=== PATIENT | male | born 1975 | race Caucasian/White ===

== ENCOUNTER → 2016-04-21 | Outpatient (CLI) | payer BC ==
[~2016-04-21] MED LIST: METH5TAB5 PO; METH5TAB63 PO; PROP40TA5 PO; VENL50TA2 PO
[2016-04-21 11:52] LABS: ALKALINE PHOSPHATASE 102 U/L (45-117); ALT/SGPT 58 U/L (12-78); AST/SGOT 24 U/L (15-37); THYROID STIMULATING HORMONE < 0.005 uIu/ml (0.300-4.500)
== END | disposition home or self-care (01) ==
LOC: C.LAB1850 10:18
PROVIDERS: ATTEND Internal Medicine Endocrinology, Diabetes & Metabolism
DX: E05.00 Thyrotoxicosis with diffuse goiter without thyrotoxic crisis or storm (principal)

== ENCOUNTER 2016-07-19 07:22 | Inpatient (IN) | payer BC ==
[2016-06-16 08:10] VITALS: BMI 35.0
--- NOTE | 2016-06-16 08:31 | PAT Medication Instructions ---
Service Date Jun 16, 2016. Current Home Medication List Methimazole (Tapazole), 10 MG PO QAM Methimazole (Tapazole), 5 MG PO HS Propranolol Hcl (Propranolol Hcl), 1 TAB PO BID Venlafaxine Hcl (Effexor), 50 MG PO QAM Medication Instructions For Your Scheduled Surgery - Take the following medications the morning of surgery with a sip of water OTHERWISE NOTHING TO EAT OR DRINK AFTER MIDNIGHT: Methimazole (Tapazole), 10 MG PO QAM Venlafaxine Hcl (Effexor), 50 MG PO QAM Propranolol Hcl (Propranolol Hcl), 1 TAB PO BID - Take the following medications as scheduled the night before surgery: Propranolol Hcl (Propranolol Hcl), 1 TAB PO BID Methimazole (Tapazole), 5 MG PO HS If you have any questions please call us at [phone] or [phone] or [phone]
[2016-06-16 09:28] LABS: BASO % 0.2 %; BASO ABS # 0.01 K/uL (0-0.2); COMPLETE YES; EOS % 1.5 %; HEMATOCRIT 45.4 % (42-52); IG% 0.3 %; LYMPH % 35.6 %; LYMPH ABS # 2.13 K/uL (1.2-3.4); MEAN CELL VOLUME 83.9 fL (80-100); MEAN CORPUSCULAR HGB CONC 34.6 g/dl (32-36); MEAN PLATELET VOLUME 9.1 fL (7.4-10.4); NEUT % 54.4 %; PLATELET COUNT 265 K/uL (130-400); RED BLOOD COUNT 5.41 M/uL (4.7-6.1); WHITE BLOOD COUNT 5.99 K/uL (4.8-10.8)
[2016-06-16 09:45] LABS: BUN/CREATININE RATIO 15.2 (10-20); CALCIUM 9.4 mg/dl (8.5-10.1); POTASSIUM 4.9 mmol/L (3.5-5.1)
[~2016-07-19] VITALS: Ht 167.6 cm; Wt 98.1 kg
[2016-07-19] VITALS (7 sets, daily range): BP systolic 122–141; BP diastolic 75–86; PULSE 71–89; TEMP 36.7–37.4; O2SAT 96; Ht 167.6 cm; Wt 98.1 kg
[~2016-07-19 07:22] MED LIST changes: +ACETAMINOPHEN 1000 MG/100 ML IV IV ONE; +CEFAZOLIN 2000 MG/60 ML D5W IV SCH; +LACTATED RINGER'S 1000ML 1,000 ML IV SCH
[2016-07-19] MEDS ORDERED: MIDAZOLAM HCL 1 MG/ML 2ML VIAL ONE (08:34)
[2016-07-19] MEDS ORDERED: FENTANYL CITRATE INJ 50 MCG/1 ML 2 ML VIAL ONE ×2 (08:34→12:19)
[2016-07-19] MEDS ORDERED: ROCURONIUM BROMIDE 10 MG/ML 5 ML VIAL ONE (08:34)
[2016-07-19] MEDS ORDERED: SUCCINYLCHOLINE CHLORIDE 20 MG/ML 10 ML VIAL IV ONE (08:34)
[2016-07-19] MEDS ORDERED: LIDOCAINE HCL 2% 2 ML VIAL (20MG/ML) ONE (08:34)
[2016-07-19] MEDS ORDERED: PROPOFOL IV EMULSION 10 MG/ML 20 ML VIAL IV ONE (08:34)
[2016-07-19] MEDS ORDERED: DEXAMETHASONE SOD INJ 4 MG/ML VIAL ONE (08:34)
[2016-07-19] MEDS ORDERED: ONDANSETRON INJ 2 MG/ML 2 ML VIAL ONE ×2 (08:34→12:20)
--- NOTE | 2016-07-19 10:11 | History & Physical Bridge Note ---
H&P Re-Evaluation Bridge Note: I have examined the patient, reviewed the History & Physical and in the interval since the performance of the History & Physical I have noted the following changes of clinical significance: No changes noted
--- NOTE | 2016-07-19 10:46 | History and Physical ---
History & Physical Date Jul 19, 2016. Chief Complaint GRAVES DISEASE History of Present Illness The patient is a 40 year old male with complaints of GRAVES DISEASE WITH SYMPTOMS DESPITE METHIMAZOLE AND PROPRANOLOL. Past Medical/Surgical History PMH: GRAVES DISEASE, DYSLIPIDEMIA, KIDNEY SONES PSH: S/P BACK AND FOOT SURGERIES Additional History Hepatic Disease: No Endocrine Disorder: No Kidney Disease: No Hypertension: No Heart Disease: No Bleeding Tendencies: No Infectious Diseases: No Allergies Coded Allergies: Ciprofloxacin (Verified Allergy, Mild, HIVES, 07/19/16) Erythromycin (Verified Allergy, Unknown, CHILD, 07/19/16) Home Medications Scheduled Methimazole (Tapazole), 10 MG PO QAM Methimazole (Tapazole), 5 MG PO HS Propranolol Hcl (Propranolol Hcl), 1 TAB PO BID Venlafaxine Hcl (Effexor), 50 MG PO QAM Physical Examination Skin: warm/dry, no rash Eyes: normal inspection, EOMI, sclerae normal ENT: normal ENT inspection, pharynx normal Head: normocephalic, atraumatic Neck: + pertinent finding (MILDLY ENLARGED THYROID GLAND R>L WHICH IS SOFT ON PALPATION) Respiratory/Chest: lungs clear, normal breath sounds, no respiratory distress Cardiovascular: regular rate, rhythm, no edema, no murmur Neurologic/Psych: no motor/sensory deficits, alert, normal reflexes, oriented x 3 Diagnosis GRAVES DISEASE Plan of Treatment TOTAL THYROIDECTOMY - CHECK TSH AND FREE T3 STAT SINCE THIS HASN'T BEEN DONE SINCE 04/2016
[2016-07-19] MEDS ORDERED: LIDOCAINE/EPINEPHRINE 1% 20 ML VIAL ONE (10:49)
[2016-07-19] MEDS ORDERED: THROMBIN 5000 UNITS KIT ONE (10:49)
[2016-07-19] MEDS ORDERED: BACITRACIN OINT 15 GM TUBE ONE (10:49)
--- NOTE | 2016-07-19 13:14 | [facility] Operative Report ---
Operative Report Operative Date Jul 19, 2016. Pre-Operative Diagnosis Graves Disease Post-Operative Diagnosis SAME Procedure(s) Performed TOTAL THYROIDECTOMY Surgeon Dr. Michael Toth Lumber Sorter Surgeon(s) Avelina August PA-C Estimated Blood Loss 100ML Findings MILDLY ENLARGED THYROID GLAND Specimens A: Right Thyroid Lobe; double stitch= superior pole; single stitch= Isthmus B: Left Thyroid Lobe; double stitch= superior pole; single stitch= Isthmus I attest to the content of the Intraoperative Record and any orders documented therein. Any exceptions are noted below.
[2016-07-19] MEDS ORDERED: ONDANSETRON INJ 2 MG/ML 2 ML VIAL IV PRN ×2 (13:15→13:45)
[2016-07-19] MEDS ORDERED: HYDROCODONE/ACETAMOPHEN 5/325MG TAB PO PRN (13:15)
--- NOTE | 2016-07-19 13:20 | Discharge Instructions ---
Discharge Instructions Date of Service Jul 19, 2016. Admission Reason for Admission: Graves Disease, Thyroid Goiter Discharge Discharge Diagnosis / Problem: SAME Discharge Goals Goal(s): Therapeutic intervention Activity Recommendations Activity Limitations: as noted below LIGHT ACTIVITY FOR 2WEEKS; NO DRIVING WHILE ON [place] . Current Hospital Diet Patient's current hospital diet: Discharge Diet Recommended Diet: Regular Diet Procedures Procedures Performed: Total Thyroidectomy Pending Studies Studies pending at discharge: no Medical Emergencies . Who to Call and When: Medical Emergencies: If at any time you feel your situation is an emergency, please call 911 immediately. . Non-Emergent Contact Non-Emergency issues call your: Surgeon . . "Provider Documentation" section prepared by Michael Toth. . VTE Core Measure Inpt VTE Proph given/why not?: SCD's
[2016-07-19] MEDS ORDERED: SURGICEL ABSORB HEMOSTAT 2IN X 14IN TOP ONE (13:21)
[2016-07-19] MEDS ORDERED: PROMETHAZINE HCL INJ 12.5 MG in SODIUM CHLORIDE 0.9% 50ML 50 ML IV PRN (13:45)
[2016-07-19] MEDS ORDERED: NALOXONE HCL 0.4 MG/1 ML VIAL/CARP IV PRN (13:45)
[2016-07-19] MEDS ORDERED: FLUMAZENIL 0.1 MG/1 ML 10 ML VIAL IV PRN (13:45)
[2016-07-19] MEDS ORDERED: LABETALOL HCL IV 5 MG/ML 20ML IV PRN (13:45)
[2016-07-19] MEDS ORDERED: ATROPINE SULFATE 0.1 MG/ML 5ML SYR IV PRN (13:45)
[2016-07-19] MEDS ORDERED: EpHEDrine SULFATE INJ 50 MG/ML AMP IV PRN (13:45)
[2016-07-19] MEDS ORDERED: HYDROmorphone INJ 1 MG/ML SYR IV PRN (13:45)
[2016-07-19] MEDS ORDERED: HYDROmorphone INJ 1 MG/ML SYR ONE (14:11)
--- NOTE | 2016-07-19 14:18 | OPERATIVE REPORT ---
DATE OF OPERATION: 07/19/2016 PREOPERATIVE DIAGNOSIS: Graves' disease. POSTOPERATIVE DIAGNOSIS: Graves' disease. PROCEDURE: Total thyroidectomy. SURGEON: Dr. Toth. FIXED INCOME MANAGER: Avelina August PA-C. ESTIMATED BLOOD LOSS: 100 mL. FINDINGS: Mildly enlarged thyroid gland. SPECIMENS: Right and left thyroid lobe sent separately for permanent pathologic assessment. DRAINS: None. COMPLICATIONS: None. INDICATIONS FOR THE PROCEDURE: The patient is a 40-year-old male with the above-mentioned history who has had symptoms despite being on methimazole and propranolol who desiring surgical treatment of his Graves' disease. He presents for the above-mentioned procedure on an inpatient elective basis. DETAILS OF PROCEDURE: After informed consent had been obtained from the patient, the patient was wheeled to the operating room and placed on the operating table in the supine position. Monitors were placed. After induction of general endotracheal anesthesia with a nerve integrity monitor endotracheal tube the patient's head and neck were gently extended and a marking pen was used to outline the planned 6 cm incision in a natural skin crease 2 fingerbreadths above the level of clavicles. A total of 3 mL of 1% lidocaine with 1:100,000 epinephrine was used to inject the skin and subcutaneous tissues overlying the planned incision site. The skin in the neck and chest were then prepped and draped in the usual sterile fashion. A #15 scalpel was then used to make the incision through the skin, subcutaneous tissue, and platysma. Subplatysmal flaps were raised superiorly to the level of the thyroid notch and inferiorly to the level of clavicles. The medial raphae of the strap muscles were divided using Bovie electrocautery. The strap muscles were retracted laterally and the right thyroid lobe was first addressed. The middle thyroid vein as well as superior and inferior thyroid vascular pedicles were divided adjacent to the thyroid capsule using a Harmonic scalpel. Dissection was carried lateral to medial with care to identify and preserve the right recurrent laryngeal nerve as well as superior and inferior parathyroid candidates. The thyroid gland was at the isthmus using a Harmonic scalpel and orienting sutures were placed on the right thyroid lobectomy. Specimens were sent off for permanent pathological assessment. The left side was then addressed in a similar fashion. Intraoperative findings were of a very mildly enlarged thyroid gland. The wound was then copiously irrigated and suctioned. Bipolar electrocautery was used to achieve adequate hemostasis. Hemostasis was confirmed with a Valsalva maneuver. Small pieces of Surgicel followed by topical spray thrombin were placed in the bilateral tracheoesophageal grooves for added hemostatic effect. The strap muscles was then reapproximated using a simple running interlocked 3-0 Vicryl suture. The platysma was then closed with several deep 4-0 Monocryl sutures. The skin was then closed with a simple running subcuticular 5-0 Monocryl suture. Incision was cleansed and dried. Dermabond was applied to the incision. This marked the end of the case. The patient tolerated the procedure well. There were no apparent complications. The patient was extubated and transferred to recovery room in stable condition. I attest to the content of the Intraoperative Record and any orders documented therein. Any exceptio ns are noted below.
--- NOTE | 2016-07-19 14:29 | Anesthesiology Progress Note ---
Anesthesia Post Op Note Date & Time Jul 19, 2016 at 14:28 Vital Signs Pain Intensity: 3 Vital Signs Past 12 Hours Date Time Temp Pulse Resp B/P Pulse Ox O2 Delivery O2 Flow Rate FiO2 07/19/16 14:21 133/78 07/19/16 14:17 91 16 07/19/16 14:17 93 16 95 07/19/16 14:16 144/79 07/19/16 14:13 138/91 07/19/16 14:12 108 12 07/19/16 14:12 108 12 95 07/19/16 14:07 89 14 96 07/19/16 14:07 90 14 07/19/16 14:06 99 16 129/93 96 07/19/16 14:06 96 16 07/19/16 14:01 96 17 139/90 94 07/19/16 14:01 96 17 07/19/16 13:56 86 17 95 07/19/16 13:56 87 17 07/19/16 13:55 141/88 07/19/16 13:52 130/93 07/19/16 13:51 101 16 07/19/16 13:51 36.2 88 13 130/93 93 Mask 15 07/19/16 13:51 102 16 92 07/19/16 08:25 36.8 71 18 140/83 96 Room Air Notes Mental Status: alert / awake / arousable, participated in evaluation Pt Amnestic to Procedure: Yes Nausea / Vomiting: adequately controlled Pain: adequately controlled Airway Patency, RR, SpO2: stable & adequate BP & HR: stable & adequate Hydration State: stable & adequate Anesthetic Complications: no major complications apparent
[2016-07-19] MEDS: LACTATED RINGER'S 1000ML 1,000 ML IV SCH (17:00)
[2016-07-19] MEDS ORDERED: PNEUMOCOCCAL POLYSACCHARIDES 25 MCG/0.5 ML VIAL/SYR IM. ONE (18:30)
[2016-07-19] MEDS ORDERED: PNEUMOCOCCAL ADMINISTRATION CHARGE ONE (18:30)
[2016-07-19 19:49] LABS: MAGNESIUM 2.1 mg/dl (1.8-2.4); PHOSPHORUS 3.1 mg/dl (2.5-4.9)
[2016-07-19] MEDS ORDERED: PROPRANOLOL HCL 20 MG TAB PO SCH (21:00)
[2016-07-20] MEDS: LACTATED RINGER'S 1000ML 1,000 ML IV SCH
[2016-07-20 00:16] VITALS: BP 126/71; PULSE 78; TEMP 36.4; O2SAT 94
[2016-07-20 01:35] LABS: CALCIUM 8.8 mg/dl (8.5-10.1); MAGNESIUM 2.2 mg/dl (1.8-2.4); PHOSPHORUS 3.1 mg/dl (2.5-4.9)
[2016-07-20 04:15] VITALS: BP 133/63; PULSE 89; TEMP 37; O2SAT 92
[2016-07-20] MEDS ORDERED: NURSING DECISION MEDICATION ORDER SCH (05:30)
[2016-07-20] MEDS ORDERED: LEVOTHYROXINE 150 MCG TAB PO SCH (06:00)
--- NOTE | 2016-07-20 07:09 | ENT PROGRESS NOTE ---
DATE: 07/20/2016 The patient is postoperative day #1 status post total thyroidectomy for Graves' disease. He has had no postoperative problems. His postoperative calciums have been within normal limits. He is tolerating normal diet and has a normal voice. The patient is afebrile and his vital signs are stable. His voice is normal. His incision is clean, dry and intact, without any evidence of hematoma. ASSESSMENT AND PLAN: Postoperative day #1 status post total thyroidectomy for Graves' disease. The patient has done well postoperatively. He will be discharged today on [place] and Synthroid. Follow up in the office next Sunday.
--- NOTE | 2016-07-20 07:13 | DISCHARGE SUMMARY ---
ADMISSION DIAGNOSIS: Graves disease. DISCHARGE DIAGNOSIS: Graves disease status post total thyroidectomy. HOSPITAL COURSE: The patient is a 40-year-old male with a history of Graves disease with symptoms uncontrolled by methimazole and propranolol who underwent total thyroidectomy on 07/19/2016. Postoperatively he had no problems. His calciums were within normal limits. He was discharged to home on postoperative day 1 with new medications of [place] 5 mg/325 mg 1-2 tabs p.o. q.4h p.r.n. as well as Synthroid 150 mcg every morning. He should continue his propranolol but stop his methimazole. I would like to see him back on Sunday for an incision check and pathology review. He should call our office if he develops any numbness or tingling around his lips, fingers, or toes and involuntary muscle spasms or cramps. He should keep his incision dry until his followup appointment.
[2016-07-20 07:25] VITALS: BP 127/79; PULSE 62; TEMP 36.5; O2SAT 96
[2016-07-20 07:30] LABS: CALCIUM 8.8 mg/dl (8.5-10.1); MAGNESIUM 2.2 mg/dl (1.8-2.4); PHOSPHORUS 3.7 mg/dl (2.5-4.9)
--- NOTE | 2016-07-20 08:11 | Anesthesiology Progress Note ---
Anesthesia Post Op Note Date & Time Jul 20, 2016 at 08:10 Vital Signs Pain Intensity: 2.0 Vital Signs Past 12 Hours Date Time Temp Pulse Resp B/P Pulse Ox O2 Delivery O2 Flow Rate FiO2 07/20/16 07:25 36.5 62 16 127/79 96 Room Air 07/20/16 04:15 37.0 89 18 133/63 92 Room Air 07/20/16 00:16 36.4 78 18 126/71 94 Room Air 07/20/16 00:15 Room Air 07/19/16 21:28 72 122/75 Notes Mental Status: alert / awake / arousable, participated in evaluation Pt Amnestic to Procedure: Yes Nausea / Vomiting: adequately controlled Pain: adequately controlled Airway Patency, RR, SpO2: stable & adequate BP & HR: stable & adequate Hydration State: stable & adequate Anesthetic Complications: no major complications apparent
[2016-07-20 08:53] VITALS: BP 127/79; PULSE 62; TEMP 36.5; O2SAT 96
[2016-07-20] MEDS ORDERED: VENLAFAXINE HCL 50 MG TAB PO SCH (09:00)
== END 2016-07-20 09:05 | disposition home or self-care (01) | DRG 627 ==
LOC: ENRESERVTM → ENRESERVDT → C.ACU 07:22 → C.MSW 08:30
PROC: 0GTH0ZZ Resection of Right Thyroid Gland Lobe, Open Approach (ICD-10-PCS; principal; 2016-07-19 09:45)
PROC: 0GTG0ZZ Resection of Left Thyroid Gland Lobe, Open Approach (ICD-10-PCS; principal; 2016-07-19 09:45)
DX: E05.00 Thyrotoxicosis with diffuse goiter without thyrotoxic crisis or storm (principal)

== ENCOUNTER → 2016-08-25 | Outpatient (CLI) | payer BC ==
[~2016-08-25] MED LIST changes: -ACETAMINOPHEN 1000 MG/100 ML IV IV ONE; -CEFAZOLIN 2000 MG/60 ML D5W IV SCH; -LACTATED RINGER'S 1000ML 1,000 ML IV SCH; -METH5TAB5 PO; -METH5TAB63 PO
[2016-08-25 10:23] LABS: BLOOD UREA NITROGEN 11 mg/dl (7-18); BUN/CREATININE RATIO 9.2 (10-20); CARBON DIOXIDE 30 mmol/L (21-32); CHLORIDE 108 mmol/L (98-107); GLUCOSE 91 mg/dl (70-99); POTASSIUM 4.4 mmol/L (3.5-5.1); SODIUM 141 mmol/L (136-145)
--- NOTE | 2016-09-01 05:55 | CODING QUERY MEDICAL NECESSITY ---
CQSUPPORTING DIAGNOSIS NEEDED A supporting diagnosis is required for the test/procedure performed on this patient in order for us to be reimbursed by the patient's insurance. Please provide a supporting diagnosis for the following test/procedure listed below next to the test name along with your signature. *If there is no additional diagnosis for this patient that would support the following test/procedure please document that below next to the test/procedure. Test(s)/Procedure(s) that require a supporting diagnosis: DOS 08/25/16 VITAMIN D TEST Provider Signature: Date: Thank you Daniela Salvador Health Information Management Once completed, please kindly fax back to [phone] For questions please call [phone]
== END | disposition home or self-care (01) ==
LOC: C.LAB1850 09:16
PROVIDERS: ATTEND Internal Medicine Endocrinology, Diabetes & Metabolism
DX: E05.00 Thyrotoxicosis with diffuse goiter without thyrotoxic crisis or storm (principal); E55.9 Vitamin D deficiency, unspecified

== ENCOUNTER → 2017-06-18 | Outpatient (CLI) | payer OTHER ==
[2017-06-18 17:10] LABS: BLOOD UREA NITROGEN 10 mg/dl (7-18); CALCIUM 9.2 mg/dl (8.5-10.1); CARBON DIOXIDE 33 mmol/L (21-32); CREATININE 1.13 mg/dl (0.60-1.40); GLUCOSE 83 mg/dl (70-99); POTASSIUM 3.7 mmol/L (3.5-5.1); SODIUM 139 mmol/L (136-145)
== END | disposition home or self-care (01) ==
LOC: C.LAB1850 15:49
PROVIDERS: ATTEND Internal Medicine Endocrinology, Diabetes & Metabolism
DX: R00.2 Palpitations (principal); E05.00 Thyrotoxicosis with diffuse goiter without thyrotoxic crisis or storm; E55.9 Vitamin D deficiency, unspecified